=== PATIENT | male | born 1950 | race Caucasian/White ===

== ENCOUNTER 2021-11-12 16:46 | Emergency (ER) | payer OTHER ==
[2021-11-12 18:01] LABS: CORONAVIRUS COVID-19 NAA POSITIVE (NEGATIVE)
--- NOTE | 2021-11-12 18:27 | EDM.PDOC ---
ED HPI GENERAL MEDICAL PROBLEM - General Chief Complaint: Respiratory Problem Stated Complaint: COUGH, LOWGRADE FEVER, ALL OVER BODY ACHES Time Seen by Provider: 11/12/21 18:04 Source of Information: Reports: Patient, RN Notes Reviewed History Limitations: Reports: No Limitations - History of Present Illness INITIAL COMMENTS - FREE TEXT/NARRATIVE: 71-year-old gentleman presents emergency department day complaint of fever, body aches and cough, he had Covid about 2 and half months ago has received 2 doses of initial vaccine no booster shot was exposed to his grandkids on Thursday grandkids were ill. This was his first sign of symptoms. 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 - Related Data Allergies Allergy/AdvReac Type Severity Reaction Status Date / Time No Known Allergies Allergy Verified 11/12/21 17:06 Home Meds: Home Meds Cyclobenzaprine HCl 10 mg PO Q8HR PRN 05/17/19 [History] Gabapentin [Neurontin] 300 mg PO BEDTIME 05/17/19 [History] Sertraline HCl 75 mg PO DAILY 05/17/19 [History] Tamsulosin HCl 0.4 mg PO DAILY 05/17/19 [History] Metoprolol Succinate 1 tab PO DAILY 11/12/21 [History] Omeprazole 1 tab PO DAILY 11/12/21 [History] atorvaSTATin Calcium [Lipitor] 1 tab PO DAILY 11/12/21 [History] Past Medical History Cardiovascular History: Reports: Hypertension Respiratory History: Reports: COPD Psychiatric History: Reports: Depression Social & Family History - Tobacco Use Tobacco Use Status *Q: Former Tobacco User Used Tobacco, but Quit: Yes Month/Year Tobacco Last Used: 1989 ED ROS GENERAL - Review of Systems Review Of Systems: See Below Constitutional: Reports: Fever, Chills, Weakness, Fatigue HEENT: Reports: No Symptoms Respiratory: Reports: Shortness of Breath, Cough. Denies: Sputum Cardiovascular: Reports: Dyspnea on Exertion GI/Abdominal: Reports: No Symptoms ED EXAM, GENERAL - Physical Exam Exam: See Below Exam Limited By: No Limitations General Appearance: Alert, WD/WN, No Apparent Distress Respiratory/Chest: No Respiratory Distress, Lungs Clear, Normal Breath Sounds, No Accessory Muscle Use, Chest Non-Tender Cardiovascular: Regular Rate, Rhythm, No Murmur Course - Vital Signs Last Recorded V/S: Last Vital Signs Temp 97.8 F 11/12/21 17:05 Pulse 86 11/12/21 17:05 Resp 17 11/12/21 17:05 BP 129/76 11/12/21 17:05 Pulse Ox 96 11/12/21 17:05 - Orders/Labs/Meds Orders: Active Orders 24 hr Category Date Time Status Isolation [COMM] Stat Oth 11/12/21 17:17 Ordered Labs: Laboratory Tests 11/12/21 Range/Units 17:18 Influenza Type A RNA Negative (NEGATIVE) RSV RNA ([facility]AT) Negative (NEGATIVE) Influenza Type B RNA Negative (NEGATIVE) SARS-CoV-2 RNA ([facility]IN) Positive H (NEGATIVE) Departure - Departure Time of Disposition: 18:30 Disposition: Home, Self-Care 01 Condition: Fair Clinical Impression: COVID-19 - Discharge Information Instructions: 10 Things You Can Do to Manage Your COVID-19 Symptoms at Home - [facility] (05/31/2021) Referrals: PCP,None [Primary Care Provider] - Additional Instructions: Outpatient treatment will call you for an appointment for the monoclonal antibody therapy, try the Tessalon Perles to help suppress the cough and self quarantine until asymptomatic, call or return to the emergency department worsening of symptoms Sepsis Event Note (ED) - Evaluation Sepsis Screening Result: No Definite Risk - Focused Exam Vital Signs: Vital Signs Temp Pulse Resp BP Pulse Ox 11/12/21 17:05 97.8 F 86 17 129/76 96 11/12/21 17:01 97.8 F 86 17 129/76 96 - My Orders Last 24 Hours: My Active Orders 11/12/21 17:17 Isolation [COMM] Stat - Assessment/Plan Last 24 Hours: My Active Orders 11/12/21 17:17 Isolation [COMM] Stat Plan: Assessment Acuity = acute Site and laterality = viral syndrome Etiology = COVID-19 Manifestations = cough Location of injury = Home Lab values = positive for COVID-19 negative for influenza negative for RSV Plan Calculated his monoclonal antibody score he is at 5 given his history of age and COPD with partial lung resection. He has had symptoms for about 4days I believe this is a new infection with Covid even though it certainly possible to be positive within a 2-1/2-month. But exceedingly rare because of his symptoms. Therefore set him up for monoclonal antibody treatment they will call him this week, prescription written for Tessalon Perles 100 mg p.o. 3 times daily to help with cough This note was dictated using View3 voice recognition software please call with any questions on syntax or grammar.
== END 2021-11-12 18:41 | disposition home or self-care (01) ==
LOC: JP.ED 16:46
DX: U07.1 COVID-19 (principal); I10 Essential (primary) hypertension; Z79.899 Other long term (current) drug therapy
CPT/HCPCS: 0241U; 99283

== ENCOUNTER 2022-09-22 14:14 | Observation (INO) | payer OTHER ==
[2022-09-22] MEDS ORDERED: Sodium Chloride 0.9% 10 ML Syringe FLUSH PRN (14:21)
[2022-09-22] MEDS ORDERED: Lactated Ringers 1,000 ML IV SCH (14:30)
[2022-09-22] MEDS ORDERED: Sodium Chloride 0.9% 75 ML IV SCH (14:45)
[2022-09-22] MEDS ORDERED: Iopamidol 612 MG/ML 100 ML Bottle IV SCH (14:45)
[2022-09-22] MEDS ORDERED: Ketamine 500 MG/5 ML MDV IV ONE (15:02)
[2022-09-22] MEDS ORDERED: HYDROmorphone 0.5 MG/0.5 ML Syringe IVPUSH ONE ×2 (15:02→16:10)
[2022-09-22] MEDS ORDERED: Ketorolac 30 MG/ML SDV IVPUSH ONE (16:03)
[2022-09-22] MEDS ORDERED: Sodium Chloride 0.9% 1,000 ML IV SCH (23:10)
[2022-09-22] MEDS ORDERED: Acetaminophen 325 MG Tab PO PRN (23:10)
[2022-09-22] MEDS ORDERED: LORazepam 2 MG/ML SDV IV PRN (23:10)
[2022-09-22] MEDS ORDERED: Gabapentin 300 MG Cap PO SCH (23:10)
[2022-09-22] MEDS ORDERED: Ondansetron 4 MG/2 ML SDV IV PRN (23:10)
[2022-09-22] MEDS ORDERED: Ondansetron 4 MG Tab.DIS PO PRN (23:10)
[2022-09-22] MEDS ORDERED: Tamsulosin 0.4 MG Cap.ER PO SCH (23:10)
[2022-09-22] MEDS ORDERED: HYDROmorphone 1 MG/ML Syringe IVPUSH PRN (23:10)
[2022-09-22] MEDS ORDERED: Acetaminophen/HYDROcodone 325-5 MG Tab PO PRN (23:10)
[2022-09-22] MEDS ORDERED: Cyclobenzaprine 10 MG Tab PO PRN (23:10)
[2022-09-22] MEDS ORDERED: Pantoprazole 40 MG Tab.CR PO ONE (23:30)
[2022-09-23] MEDS ORDERED: Sertraline 25 MG Tab PO SCH (09:00)
[2022-09-23] MEDS ORDERED: Metoprolol Succinate 25 MG Tab.ER PO SCH (09:00)
[2022-09-23] MEDS ORDERED: Sertraline 50 MG Tab PO SCH (09:00)
[2022-09-23] MEDS ORDERED: atorvaSTATin 10 MG Tab PO SCH (09:00)
[2022-09-23] MEDS ORDERED: Pantoprazole 40 MG Tab.CR PO SCH (21:00)
== END 2022-09-23 15:30 | disposition home or self-care (01) ==
LOC: JP.ED 14:14 → JP.MS 19:46
PROVIDERS: ADMIT Nurse Practitioner; ATTEND Hospitalist
DX: I60.9 Nontraumatic subarachnoid hemorrhage, unspecified (principal); M79.672 Pain in left foot; I25.10 Atherosclerotic heart disease of native coronary artery without angina pectoris; I10 Essential (primary) hypertension; J44.9 Chronic obstructive pulmonary disease, unspecified; F51.01 Primary insomnia; F32.A Depression, unspecified; Z87.891 Personal history of nicotine dependence; V89.2XXA Person injured in unspecified motor-vehicle accident, traffic, initial encounter; Z79.899 Other long term (current) drug therapy; Z20.822 Contact with and (suspected) exposure to COVID-19
CPT/HCPCS: 36415; 70450; 70450-26; 70486; 70486-26; 71260; 71260-26; 72125; 72125-26; 73610-26-LT; 73610-LT; 73630-26-LT; 73630-LT; 80048; 85025; A9270-GY; J1170; J3490; J7030; J7120; Q9967; U0002

== ENCOUNTER 2025-07-06 08:53 | Emergency (ER) | payer OTHER ==
[2025-07-06 09:46] LABS: APPEARANCE,URINE TURBID (CLEAR); GLUCOSE,URINE NEGATIVE (NEGATIVE); OCCULT BLOOD,URINE MODERATE (NEGATIVE)
[2025-07-06 09:52] LABS: SQUAMOUS EPITHELIAL CELLS,UR NOT SEEN /HPF
== END 2025-07-06 11:35 | disposition home or self-care (01) ==
LOC: JP.ED 08:53
DX: N39.0 Urinary tract infection, site not specified (principal); I25.10 Atherosclerotic heart disease of native coronary artery without angina pectoris; I10 Essential (primary) hypertension; J44.9 Chronic obstructive pulmonary disease, unspecified; Z86.16 Personal history of COVID-19; Z79.899 Other long term (current) drug therapy; Z79.82 Long term (current) use of aspirin
CPT/HCPCS: 51702; 81001; 87086; 87088; 87186; 99283; 99284